=== PATIENT | female | born 1995 | race Caucasian/White ===

== ENCOUNTER 2016-09-26 13:18 | Observation (INO) | payer OTHER ==
[~2016-09-26] VITALS: Ht 152.4 cm; Wt 61.0 kg
[2016-09-26 14:08] LABS: BASO % 0.5 % (0.1-1.2); EOS # 0.4 10_X3_uL (0.0-0.4); GRAN # 5.3 10_X3_uL (1.6-6.1); HEMATOCRIT 37.1 % (34-45); HEMOGLOBIN 12.6 g/dL (11.2-15.7); LYMPH # 2.7 10_X3_uL (1.2-3.7); LYMPH % 30.5 % (19.3-51.7); MEAN CORPUSCULAR VOLUME 94.2 fL (79-95); MEAN PLATELET VOLUME 10.3 fl (7.5-11.5); MONO # 0.4 10_X3_uL (0.2-0.9); PLATELET COUNT 238 x10_3/uL (182-369); RED BLOOD COUNT 3.94 x10_6/uL (3.9-5.2); RED CELL DISTRIBUTION WIDTH 12.8 % (11.7-14.4); WHITE BLOOD COUNT 8.8 x10_3/uL (4.0-10.0)
[2016-09-26 14:18] LABS: ALBUMIN 4.1 gm/dL (3.4-5.0); ALKALINE PHOSPHATASE 80 U/L (50-136); ALT/SGPT 13 U/L (3.5-33.9); AMYLASE 46 U/L (15.62-74.58); AST/SGOT 18 U/L (7.04-26.96); BILIRUBIN,TOTAL 0.22 mg/dL (0.0-1.0); BLOOD UREA NITROGEN 10 mg/dL (7-18); CALCIUM 9.1 mg/dL (8.7-10.7); CARBON DIOXIDE 28 mmol/L (21-32); CREATININE 0.8 mg/dL (0.6-1.3); GLUCOSE,RANDOM 79 mg/dL (70-99); LIPASE 31 U/L (6.75-60.75); POTASSIUM 4.4 mmol/L (3.5-5.1); SODIUM 140 mmol/L (136-145); TOTAL PROTEIN 7.4 gm/dL (6.4-8.2)
== END 2016-09-28 11:00 | disposition home or self-care (01) ==
LOC: ER 13:18 → MS 14:40
PROVIDERS: General Practice; ADMIT Surgery
PROC: 0FT44ZZ Resection of Gallbladder, Percutaneous Endoscopic Approach (ICD-10-PCS; principal; 2016-09-27)
DX: K81.0 Acute cholecystitis (principal); R10.11 Right upper quadrant pain; R11.2 Nausea with vomiting, unspecified; J45.909 Unspecified asthma, uncomplicated; Z79.899 Other long term (current) drug therapy
CPT/HCPCS: 36415; 80053; 81025; 82150; 83690; 85025; 96361; 96374; 96375; 96376; 99070; 99284; 99284-25; G0378; J1170; J2704; J2710; J7635